=== PATIENT | female | born 1955 | race Caucasian/White ===

== ENCOUNTER → 2016-04-23 | Outpatient (CLI) | payer BC, OTHER ==
[~2016-04-23] MED LIST: ALBUTEROL SULFATE 0.083% NEB 2.5 MG/3 ML AMPUL NEB ONE
--- NOTE | 2016-04-25 10:18 | PULMONARY FUNCTION TEST ---
DATE OF SERVICE: 04/23/2016 THE VITAL CAPACITY IS NORMAL. THE EXPIRATORY FLOW RATES ARE NORMAL. THE FEV1/VC IS 61%, PREDICTED: 83% LUNG VOLUMES BY NITROGEN WASH OUT METHOD SHOW: TLC IS 112% OF PREDICTED FRC IS 115% OF PREDICTED RV IS 81% OF PREDICTED THE DLCO IS 13.1, 73% OF PREDICTED. THE RV/TLC RATIO IS 27% PREDICTED 38% AFTER BRONCHODILATOR, EXPIRATORY FLOW RATES SHOW SIGNIFICANT IMPROVEMENT. IMPRESSION: ALTHOUGH THE VC AND FEV1 ARE BOTH NORMAL, THE DECREASE IN FEV1/VC SUGGESTS A SLIGHT OBSTRUCTIVE DEFECT. EXPIRATORY FLOW RATES IMPROVE SIGNIFICANTLY AFTER BRONCHODILATOR. CC: DEREK NYE MD > URBANOD
== END ==
LOC: RT 08:20 → MERGE 08:30
PROVIDERS: ATTEND Internal Medicine Pulmonary Disease
DX: R05 Cough (principal)
CPT/HCPCS: 94060; 94727; 94729

== ENCOUNTER 2019-01-13 11:20 | Day surgery (SDC) | payer MEDICARE, BC, OTHER ==
[2019-01-12 10:06] LABS: HEMATOCRIT 40.4 % (36.0-47.0); HEMOGLOBIN 13.6 g/dL (12.0-15.5); MEAN CORPUSCULAR HEMOGLOBIN 30.8 pg (27.0-33.4); MEAN CORPUSCULAR HGB CONC 33.6 g/dL (32.0-36.0); MEAN CORPUSCULAR VOLUME 92 fl (80-97); PLATELET COUNT 214 10^3/uL (150-450); RED BLOOD COUNT 4.41 10^6/uL (3.72-5.28); RED CELL DISTRIBUTION WIDTH 12.8 % (11.5-14.0); WHITE BLOOD COUNT 6.2 10^3/uL (4.0-10.5)
[2019-01-12 10:14] LABS: AMORPHOUS SEDIMENT,URINE TRACE /HPF; APPEARANCE,URINE CLOUDY; BILIRUBIN,URINE NEGATIVE (NEGATIVE); COLOR,URINE YELLOW; GLUCOSE, URINE NEGATIVE (NEGATIVE); KETONES,URINE NEGATIVE (NEGATIVE); LEUKOCYTE ESTERASE,URINE NEGATIVE (NEGATIVE); NITRITE,URINE NEGATIVE (NEGATIVE); PROTEIN,URINE NEGATIVE (NEGATIVE); URINE SPECIFIC GRAVITY 1.016; UROBILINOGEN,URINE NEGATIVE mg/dL (<2.0)
--- NOTE | 2019-01-12 13:35 | EKG REPORT ---
SEVERITY:- NORMAL ECG - SINUS RHYTHM : Confirmed by: Bryn Santos MD 12-Jan-2019 13:35:15
[~2019-01-13 11:20] MED LIST changes: -ALBUTEROL SULFATE 0.083% NEB 2.5 MG/3 ML AMPUL NEB ONE; +LACTATED RINGERS 1000 ML IV PRN; +LIDOCAINE 0.5% INJ-PF (5 MG/ML) 50 ML SDV SUBCUT PRN
[2019-01-13] MEDS ORDERED: PROPOFOL INJ 200 MG/20 ML VIAL IV ONE (13:08)
[2019-01-13] MEDS ORDERED: FENTANYL CITRATE INJ/PF 100 MCG/2 ML AMPUL ONE (13:08)
[2019-01-13] MEDS ORDERED: MIDAZOLAM 2 MG/2 ML INJ ONE (13:08)
[2019-01-13] MEDS ORDERED: KETAMINE HCL INJ 500 MG/10 ML VIAL ONE (13:08)
[2019-01-13] MEDS ORDERED: DIPHENHYDRAMINE HCL 50 MG/ML VIAL IV PRN (14:16)
[2019-01-13] MEDS ORDERED: OXYCODONE-ACETAMINOPHEN 5-325 MG TABLET ONE (14:55)
[2019-01-13] MEDS ORDERED: MORPHINE SULFATE 10 MG/ML INJ IM PRN (14:58)
--- NOTE | 2019-01-13 14:59 | Operative Report ---
Operative Report DATE OF SURGERY: 01/13/19 PREOPERATIVE DIAGNOSIS: family history of malignant neoplasm, cervical stenosis, POSTOPERATIVE DIAGNOSIS: Same OPERATION: Cervical dilation endometrial curettage SURGEON: BETSY MENDOZA ANESTHESIA: LMAC TISSUE REMOVED OR ALTERED: Pap smear endometrial sampling COMPLICATIONS: Was not able to complete hysteroscope due to severity of cervical stenosis. Able to dilate adequately. Concern for uterine perforation. ESTIMATED BLOOD LOSS: 10 cc INTRAOPERATIVE FINDINGS: Very small vaginal introitus, cervix very small very stenotic. PROCEDURE: Patient was taken to the operating room prepared and draped in normal sterile fashion in a dorsal lithotomy position in [facility]. Sterile conditions and in and out cath was performed with approximately 10 cc of clear urine. Pediatric speculum was chosen to the patient's anatomy into the patient's vagina. This was located Pap smear was obtained using a Cytobrush and a spatula. Wax was grasped on the anterior lip with a single-tooth tenaculum. With a lacrimal dilators I began dilatation of the cervix much difficulty. I was only able to dilate to 4 mm. At this point I used an endometrial Pipelle attempt collection of endometrial sampling Pipelle went through easily no resistance there was concern for perforation. The sampling that I did collect from this Pipelle was washed through the water and placed in a formalin container. The Kevorkian curette was gently introduced with gentle scraping was performed. I then removed instruments and held pressure with a sponge stick. We watch the patient for approximately 10 minutes in the OR did not see any signs of hypotension or any other indication that which show there was blood vessel damage. Taken to the PACU alert condition to carefully there with again no signs of permanent injury from perforation feel that the patient most likely had either a minor perforation that walled itself off or there is no perforation after all.
[2019-01-13] MEDS ORDERED: IBUPROFEN 800 MG TABLET PO PRN (15:02)
[2019-01-13] MEDS ORDERED: OXYCODONE-ACETAMINOPHEN 5-325 MG TABLET PO PRN ×2 (15:02→15:03)
[2019-01-13 16:26] VITALS: BP 129/69
== END 2019-01-13 16:10 | disposition home or self-care (01) ==
LOC: OROUT 11:20
PROVIDERS: ATTEND Obstetrics & Gynecology
DX: N88.2 Stricture and stenosis of cervix uteri (principal); Z80.41 Family history of malignant neoplasm of ovary; Z79.899 Other long term (current) drug therapy; Z88.0 Allergy status to penicillin; Z88.2 Allergy status to sulfonamides
CPT/HCPCS: 93005; 36415; 82962; 85027; 81001; 88305 ×2; 88142; 93010; 58120; J2250; J3490; A9270; J2704; 940; J3010

== ENCOUNTER 2020-03-09 20:55 | Inpatient (IN) | payer MEDICARE, BC, OTHER ==
[2020-03-09] MEDS ORDERED: ADENOSINE INJ/PF 6 MG/2 ML SDV IV ONE ×3 (21:49→22:21)
[2020-03-09] MEDS ORDERED: ONDANSETRON HCL INJ/PF 4 MG/2 ML SDV ONE (21:58)
[2020-03-09] MEDS ORDERED: METOPROLOL TARTRATE PF/INJ 5 MG/5 ML SDV IV ONE ×2 (21:59→22:21)
[2020-03-09] MEDS ORDERED: DILTIAZEM HCL/D5W 125 MG/125 ML RTUINJ IV ONE (22:11)
[2020-03-09] MEDS ORDERED: ONDANSETRON HCL INJ/PF 4 MG/2 ML SDV IV ONE (22:21)
[2020-03-09] MEDS ORDERED: DILTIAZEM HCL/D5W 125 MG/125 ML RTUINJ IV PRN (22:22)
[2020-03-09] MEDS ORDERED: NORMAL SALINE 1000 ML 1,000 ML IV ONE (22:22)
--- NOTE | 2020-03-09 22:44 | ER Document Report ---
ED General - General Chief Complaint: Palpitations Stated Complaint: CHEST DISCOMFORT TRAVEL OUTSIDE OF THE [place] IN LAST 30 DAYS: No - HPI Context: Chief Complaint: [Rapid heart rate] [This is a 64-year-old female who presents to the emergency department complaining of rapid heart rate that has been present for approximately 5 hours. Patient states that she does not have a history of hypertension and does not have any history of thyroid trouble, however, her doctor has told her that her TSH level has been elevated the past couple of times she has had it checked. Patient states she has had episodes of rapid heart rate in the past but they have been self-limited and have resolved on their own in the past. Patient stat es that she only drinks 1 cup of coffee a day and states that the coffee is decaffeinated. Patient states that she has had some chocolate earlier today. Patient denies history of heavy drinking or high blood pressure. Patient denies shortness of breath or chest pain. Patient denies fever, chills, history of COVID-19 infection, known exposure to Covid positive persons or persons under investigation for COVID-19. Patient denies loss of sense of taste or loss of sense of smell. ] History obtained from [patient] Symptoms began:[1800 hrs.] Onset: [Sudden] Timing: [Sudden] Quality: ["Fluttering"] Intensity: [0 out of 5] Location: [Chest] Radiation: [Denies] [The pain does not migrate to a new location.] Aggravating factors: [none] Relieving factors: [none] [Denies] SOB [Denies] nausea [Denies] vomiting [Denies] sweats [Denies] fever [Denies] cough [Denies] calf or leg swelling or pain - Related Data Allergies/Adverse Reactions: Penicillins Adverse Reaction (Verified 01/13/19 12:22) Sulfa (Sulfonamide Antibiotics) Adverse Reaction (Verified 01/13/19 12:22) Past Medical History - General Information source: Patient - Social History Smoking Status: Never Smoker Family History: Reviewed & Not Pertinent - Past Medical History Cardiac Medical History: Reports: Hx Hypertension Denies: Hx Coronary Artery Disease, Hx Heart Attack Pulmonary Medical History: Reports: Hx Asthma - MOD; NO RESCUE MEDS Denies: Hx Bronchitis, Hx COPD, Hx Pneumonia Neurological Medical History: Denies: Hx Cerebrovascular Accident, Hx Seizures Musculoskeletal Medical History: Denies Hx Arthritis - Immunizations Hx Diphtheria, Pertussis, Tetanus Vaccination: Yes Review of Systems - Review of Systems Notes: Review of systems as below unless otherwise stated in HPI. CONSTITUTIONAL [No] fever, [No] chills. EYES [No] eye pain. ENT [No] URI symptoms, [No] sore throat, [No] ear pain. CARDIOVASCULAR [No] chest pain, positive palpitations, [No] edema. RESPIRATORY [No] Cough, [No] SOB, [No] wheezing. GASTROINTESTINAL [No] abdominal pain, [No] nausea, [No] Diarrhea, [No] Vomiting, [No] c onstipation, [No] melena, [No] rectal bleeding. GENITOURINARY [No] dysuria, [No] urinary frequency, [No] hematuria, [No] urinary urgency, [No] vaginal discharge, [No] vaginal bleeding. MUSCULOSKELETAL [No] Back pain. SKIN [No] Rash. NEUROLOGIC [No] Headache, [No] recent seizures, [No] paralysis,[No] parathesias. ENDOCRINE [No] polyuria. HEMO/LYMPATIC [No] easy brusing PSYCHIATRIC [No] depression. Physical Exam - Vital signs Vitals: Temp Pulse Resp BP Pulse Ox 98.1 F 103 H 16 106/51 L 99 03/09/20 21:21 03/09/20 21:21 03/09/20 21:21 03/09/20 21:21 03/09/20 21:21 - Notes Notes: CONSTITUTIONAL [Vital signs reviewed, Patient appears comfortable, Alert and oriented X 3, Normal stature.] HEAD [Atraumatic, Normocephalic.] EYES [Eyes are normal to inspection, No discharge from eyes, Extraocular muscles intact, Sclera are normal, Conjunctiva are normal.] ENT [External ears normal to inspection, Nose examination normal, Mouth normal to inspection.] NECK [Normal ROM, No jugular venous distention, No meningeal signs, ] RESPIRATORY CHEST [Chest is nontender, Breath sounds normal, No respiratory distress.] CARDIOVASCULAR Tachycardia no murmurs, Normal S1 S2, No rub, No gallop.] ABDOMEN [Abdomen is nontender, No pulsatile masses, No other masses, Bowel sounds normal, No distension, No peritoneal signs, No hernias.] BACK [There is no CVA Tenderness, There is no tenderness to palpation, Normal inspection.] UPPER EXTREMITY [Inspection normal, No cyanosis, No clubbing, No edema, LOWER EXTREMITY [Inspection normal, No cyanosis, No clubbing, No edema, No calf tenderness, NEURO [No focal motor deficits, No focal sensory deficits, Speech normal.] SKIN [Skin is warm, Skin is dry, Skin is normal color.] PSYCHIATRIC [Normal affect. ] Course - Re-evaluation Re-evalutation: 03/09/20 22:50 Differential diagnosis: SVT, atrial fibrillation with RVR, atrial flutter, dehy dration, COVID-19 infection, PE, thyroid disorder 03/09/20 22:50 Medical decision making: Upon initial presentation, patient was noted to have a heart rate that would go up into the 160s to 180s range. Initially adenosine was chosen to chemically cardiovert the patient. Patient was given 6 mg of adenosine with a brief decrease in heart rate that did not last. Patient was given 12 mg of adenosine which also had a transient decrease in heart rate. Metoprolol was then ordered, 5 mg IV bolus, with decreased in the heart rate down to the 130s at times and even down to the low 100s at other times. IV fluid bolus was ordered because the patient's systolic pressure was 88 and the patient's blood pressure improved to 115 systolic. A bolus of normal saline was ordered and patient was started on a diltiazem drip at 5 mg an hour. 03/10/20 00:57 Medical decision making: Patient's presentation is most consistent with new onset A. fib with RVR. Patient is currently controlled in terms of her rate with a diltiazem drip at 7.5 mg/h. Since this is new onset A. fib, plan will be to admit the patient states she is being controlled with diltiazem drip and give the patient dose of Lovenox. 03/10/20 00:59 Results of ED MSE discussed with patient. Plan to admit patient had already been discussed with her earlier during her visit. Patient is amenable to this. All questions were answered prior to calling for admission. - Vital Signs Vital signs: Temp Pulse Resp BP Pulse Ox 98.1 F 103 H 13 121/74 99 03/09/20 21:21 03/09/20 21:21 03/10/20 00:16 03/10/20 00:16 03/10/20 00:16 - Laboratory Results Result Diagrams: 03/09/20 21:33 03/09/20 21:33 Laboratory Results Interpreted: 03/09/20 03/09/20 21:33 21:33 Hct 34.5 L Chloride 109 H BUN 29 H Est GFR (MDRD) Non-Af 57 L Critical Laboratory Results Reviewed: No Critical Results Attending or Supervising Physician who Reviewed Labs: JOHNNA VALDES IV - Radiology Results Critical Radiology Results Reviewed: No Critical Results Attending or Supervising Physician who Reviewed Radiology: JOHNNA VALDES IV - EKG Interpretation by Me Additional EKG results interpreted by me: 03/10/20 01:15 EKG obtained on 03/09/2020 at 2113 hrs. was interpreted by this MD. Findings: tachycardia, rate is irregular running between 93 and 188, no P waves are clearly visualized, normal axis, QRS complexes appear narrow, QTC is 459, there are no obvious patterns of ST segment elevation, depression or reciprocal changes seen to suggest acute myocardial ischemia or infarction. When compared to prior EKG from 01/12/2019, patient had a sinus bradycardia with a rate of 54 back in December 2018; today her rate is markedly increased and her rhythm is regular. Impression: Tachycardia with regular rate and nonspecific ST segments. 03/10/20 01:45 Repeat EKG obtained on 03/10/2020 at 014 0 hours was interpreted by this MD. Findings: Atrial fibrillation, rate 93, normal axis, QRS appears narrow, QTC is 413, there are no obvious patterns of ST segment elevation, depression or reciprocal changes seen to suggest acute myocardial ischemia or infarction. Impression: Rate controlled A. fib - Consults Dr. Blackwood Time consulted: 00:56 Reason for consultation: 03/10/20 01:26 New onset A. fib with RVR Consulted provider: will come to ER Procedures - Additional Procedures Cardioversion/Defib Time performed: 21:49 Additional Procedures: Cardioversion/defib Notes: 03/09/20 22:54 Chemical cardioversion was performed as described in the "course" section of this note. Patient initially had a heart rate as high as the 180s. Patient was given 2 doses of adenosine IV with brief decrease in rate that was transient. Patient was then given 5 mg of metoprolol IV which brought her rate down to the low 100s. A IV bolus of fluid was ordered for the patient because she had a systolic pressure of 88 and the patient responded nicely with a increase in her systolic pressure to 115. Patient was started on a diltiazem drip for rate control at 5 mg an hour. Critical Care Note - Critical Care Note Total time excluding time spent on procedures (mins): 120 - Management of new onset atrial fibrillation with RVR Discharge - Discharge Clinical Impression: New onset atrial fibrillation, Atrial fibrillation with RVR Condition: Stable Disposition: ADMITTED INPATIENT Admitting Provider: Deenarimichele Unit Admitted: [facility]
--- NOTE | 2020-03-09 23:20 | RADIOLOGY REPORT (SQ) ---
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 FINDINGS: Single view is obtained. Cardiac and mediastinal contours are normal. Lungs are clear. No pleural effusion or pneumothorax. IMPRESSION: No acute disease.
[2020-03-09 23:27] LABS: ALBUMIN 3.7 g/dL (3.5-5.0); ALKALINE PHOSPHATASE 52 U/L (38-126); ASPARTATE AMINO TRANSFERASE 27 U/L (14-36); BILIRUBIN,DIRECT 0.2 mg/dL (0.0-0.4); BILIRUBIN,TOTAL 0.3 mg/dL (0.2-1.3); BLOOD UREA NITROGEN 29 mg/dL (7-20); CALCIUM 9.6 mg/dL (8.4-10.2); GLUCOSE 92 mg/dL (75-110); POTASSIUM 4.2 mmol/L (3.6-5.0); TOTAL PROTEIN 6.3 g/dL (6.3-8.2)
[2020-03-09 23:30] LABS: PARTIAL THROMBOPLASTIN TIME 34.7 SEC (23.5-35.8); PROTHROMBIN TIME 13.4 SEC (11.4-15.4)
[2020-03-09 23:31] LABS: ABSOLUTE EOSINOPHILS # (AUTO) 0.2 10^3/uL (0.0-0.6); ABSOLUTE MONOCYTES (AUTO) 0.6 10^3/uL (0.1-1.4); ABSOLUTE NEUT (AUTO) 3.7 10^3/uL (1.7-8.2); BASOPHILS % (AUTO) 0.3 % (0-2); EOSINOPHILS % (AUTO) 3.6 % (0-6); HEMATOCRIT 34.5 % (36.0-47.0); HEMOGLOBIN 12.2 g/dL (12.0-15.5); LYMPHOCYTES % (AUTO) 30.3 % (13-45); MEAN CORPUSCULAR HEMOGLOBIN 31.6 pg (27.0-33.4); MEAN CORPUSCULAR HGB CONC 35.2 g/dL (32.0-36.0); MEAN CORPUSCULAR VOLUME 90 fl (80-97); MONOCYTES % (AUTO) 8.7 % (3-13); PLATELET COUNT 217 10^3/uL (150-450); RED BLOOD COUNT 3.85 10^6/uL (3.72-5.28); RED CELL DISTRIBUTION WIDTH 12.8 % (11.5-14.0); SEGMENTED NEUTROPHILS % (AUTO) 57.1 % (42-78); TOTAL CELLS COUNTED % (AUTO) 100 %; WHITE BLOOD COUNT 6.6 10^3/uL (4.0-10.5)
[2020-03-09 23:33] LABS: ANION GAP 5 (5-19); CARBON DIOXIDE 27 mmol/L (22-30); CHLORIDE 109 mmol/L (98-107)
[2020-03-09 23:56] LABS: FREE T3 3.06 pg/mL (2.77-5.27); FREE T4 (FREE THYROXINE) 0.8 ng/dL (0.78-2.19)
[2020-03-10 00:09] LABS: THYROID STIMULATING HORMONE 4.4 uIU/mL (0.47-4.68)
[2020-03-10] MEDS ORDERED: ENOXAPARIN SODIUM INJ 100 MG/1 ML DISP.SYRIN SUBCUT STA (00:48)
[2020-03-10] MEDS ORDERED: ADENOSINE INJ/PF 6 MG/2 ML SDV IV ONE (01:02)
[2020-03-10] MEDS ORDERED: ACETAMINOPHEN 325 MG TABLET PO PRN (01:42)
[2020-03-10] MEDS ORDERED: ONDANSETRON HCL INJ/PF 4 MG/2 ML SDV IV PRN (01:42)
[2020-03-10] MEDS ORDERED: DILTIAZEM HCL/D5W 125 MG/125 ML RTUINJ IV PRN (02:08)
--- NOTE | 2020-03-10 03:23 | PDOC H&P ---
History of Present Illness Admission Date/PCP: 03/10/20 01:37 ONEL THOMAS MD Patient complains of: "I feel like my heart is fluttering" History of Present Illness: AUDIE RYAN is a 64 year old female with a history of asthma, anxiety and PTSD presents to the ED reporting that she has been having fluttering of her heart which started about an hour before presentation. She states that in the past she used to have these paroxysms of fluttering which used to subside with change of position but this time around, she states that she waited around 40 minutes but it did not improve so she called EMS and came to the ER. Associated with this she also states that she felt nauseated and also had dizziness. On arrival patient was tachycardic with heart rate in the 140s and EKG showed A. fib with RVR. After arrival to the ED patient was given adenosine twice but failed to improve and subsequently she was given metoprolol and placed on diltiazem drip. Currently she reports some retrosternal tightness but denies any dizziness, shortness of breath, nausea, vomiting, fever, chills, or any change in her bowel or urinary habits. Past Medical History Cardiac Medical History: Reports: Hypertension Denies: Coronary Artery Disease, Myocardial Infarction Pulmonary Medical History: Reports: Asthma - MOD; NO RESCUE MEDS Denies: Bronchitis, Chronic Obstructive Pulmonary Disease (COPD), Pneumonia Neurological Medical History: Denies: Seizures Musculoskeltal Medical History: Denies: Arthritis Hematology: Reports: Anemia Social History Information Source: Patient Lives with: Family Smoking Status: Never Smoker Frequency of Alcohol Use: None Hx Recreational Drug Use: No Drugs: None - Advance Directive Resuscitation Status: Full Code Family History Family History: Reviewed & Not Pertinent Parental Family History Reviewed: Yes Children Family History Reviewed: Yes Sibling(s) Family History Reviewed.: Yes Medication/Allergy Home Medications: Buspirone HCl [Buspar 10 mg Tablet] 10 mg PO TID 01/12/19 Doxylamine Succinate [Unisom] 25 mg PO HSP PRN 01/12/19 Escitalopram Oxalate [Lexapro] 20 mg PO HSP PRN 01/12/19 Fexofenadine HCl [Funmliayo] 30 mg PO HSP PRN 01/12/19 Fluticasone Propionate [Flonase Nasal [place] 50 Mcg/[place] 16 gm] 120 spray NAREB 01/12/19 Fluticasone/Vilanterol [Breo Ellipta 100-25 Mcg INH] 1 each IH DAILY 01/12/19 Guanfacine HCl 1 mg PO DAILY 01/12/19 Krill/[place]-3/Dha/Epa/Lipids [Krill Oil 300 mg Softgel] 1 each PO DAILY 01/12/19 L.acidoph,Paracasei, B.lactis [Probiotic] 1 each PO HSP PRN 01/12/19 Montelukast Sodium [Singulair 10 mg Tablet] 10 mg PO QHS 01/12/19 Pimecrolimus [Elidel] 100 gm TP PRN 01/12/19 Polyethylene Glycol 3350 [Miralax] 119 gm PO DAILY 01/12/19 Risedronate Sodium 150 mg PO Q30D 01/12/19 Tiotropium [place] [Spiriva [place]er 5 Cap/Kit (18 Mcg/Cap)] 1 cap IH HSP PRN 01/12/19 Ubidecarenone [Co Q-10] 400 mg PO DAILY 01/12/19 Allergies/Adverse Reactions: Penicillins Adverse Reaction (Verified 01/13/19 12:22) Sulfa (Sulfonamide Antibiotics) Adverse Reaction (Verified 01/13/19 12:22) Review of Systems Constitutional: ABSENT: chills, fever(s), headache(s), weight gain, weight loss Eyes: ABSENT: visual disturbances Ears: ABSENT: hearing changes Cardiovascular: PRESENT: as per HPI Respiratory: ABSENT: cough, hemoptysis Gastrointestinal: ABSENT: abdominal pain, constipation, diarrhea, hematemesis, hematochezia, nausea, vomiting Genitourinary: ABSENT: dysuria, hematuria Musculoskeletal: ABSENT: joint swelling Integumentary: ABSENT: rash, wounds Neurological: ABSENT: abnormal gait, abnormal speech, confusion, dizziness, focal weakness, syncope Psychiatric: ABSENT: anxiety, depression, homidical ideation, suicidal ideation Endocrine: ABSENT: cold intolerance, heat intolerance, polydipsia, polyuria Hematologic/Lymphatic: ABSENT: easy bleeding, easy bruising Physical Exam Vital Signs: Temp Pulse Resp BP Pulse Ox 98.1 F 103 H 13 121/74 99 03/09/20 21:21 03/09/20 21:21 03/10/20 00:16 03/10/20 00:16 03/10/20 00:16 Intake & Output 03/08/20 03/09/20 03/10/20 06:59 06:59 06:59 Intake Total 1002 Balance 1002 Weight 85.8 kg Additional comments: GENERAL APPEARANCE: Alert and oriented x3, in no acute distress HEENT: Normocephalic and atraumatic. No scleral icterus. Moist oral mucosa NECK: Supple. No lymphadenopathy or tenderness. No carotid bruit. No JVD CHEST: Symmetric. Nontender to palpation. LUNGS: Clear with good air entry bilaterally. No wheezing or crackles HEART: Regular rate and rhythm with normal S1 and S2. No murmurs, gallops, or rubs. ABDOMEN: soft, active bowel sounds, no direct or rebound tenderness. No organomegaly detected. EXTREMITIES: No cyanosis, clubbing, or edema. MUSCULOSKELETAL: No deformity, atrophy or swelling noted PSYCHIATRIC: Recent and remote memory is intact. Appropriate mood and affect. SKIN: Warm, dry, and well perfused. No lesions or rashes are noted. NEUROLOGIC: No focal sensory or motor deficits are noted. Results Laboratory Results: 03/09/20 21:33 03/09/20 21:33 03/09/20 03/09/20 03/09/20 21:33 21:33 21:33 WBC 6.6 RBC 3.85 Hgb 12.2 Hct 34.5 L MCV 90 MCH 31.6 MCHC 35.2 RDW 12.8 Plt Count 217 Seg Neutrophils % 57.1 Sodium 141.0 Potassium 4.2 Chloride 109 H Carbon Dioxide 27 Anion Gap 5 BUN 29 H Creatinine 0.97 Est GFR ( Amer) > 60 Glucose 92 Calcium 9.6 Total Bilirubin 0.3 AST 27 Alkaline Phosphatase 52 Total Protein 6.3 Albumin 3.7 TSH 4.40 Free T4 0.80 Free T3 pg/mL 3.06 03/09/20 21:33 Troponin I < 0.012 Impressions: Chest X-Ray 03/09/20 22:41 IMPRESSION: No acute disease. Assessment and Plan - Diagnosis (1) Atrial fibrillation with RVR Is this a current diagnosis for this admission?: Yes Plan: New onset A. fib with RVR Patient presents with heart fluttering EKG shows A. fib with RVR with heart rate of 148 [id number] score: 2 indicating that she would need anticoagulation Fail to improve with pleural IV push Patient was started on diltiazem drip at the ED and currently rate is in the 80s Cardiac enzymes were negative TSH, free T4 and T3 were within the normal limit Continue diltiazem drip Continue trending cardiac enzymes On telemetry monitoring Will start him on diltiazem 30 mg p.o. q. 6 hourly and titrate down the IV drip Will Obtain echocardiogram and if no valvular heart disease, consider starting her on DOAC's Cardiology consult placed (2) Asthma Is this a current diagnosis for this admission?: Yes Plan: Currently stable and not in acute exacerbation Continue Breo, Spiriva and singular Albuterol inhaler as needed for shortness of breath (3) Anxiety Is this a current diagnosis for this admission?: Yes Plan: Continue buspirone (4) PTSD (post-traumatic stress disorder) Is this a current diagnosis for this admission?: Yes Plan: Continue buspirone and sertraline (5) Obesity (BMI 30-39.9) Is this a current diagnosis for this admission?: Yes - Time Time Spent with patient: 35 or more minutes Total Critical Time (Minutes): 45 Medications reviewed and adjusted accordingly: Yes Anticipated Discharge Disposition: Home, Self Care Anticipated Discharge Timeframe: within 72 hours - Inpatient Certification Based on my medical assessment, after consideration of the patient's comorbidities, presenting symptoms, or acuity I expect that the services needed warrant INPATIENT care.: Yes I certify that my determination is in accordance with my understanding of Medicare's requirements for reasonable and necessary INPATIENT services [42 CFR 412.3e].: Yes Medical Necessity: Need Close Monitoring Due to Risk of Patient Decompensation, Need For Continuous Telemetry Monitoring, Risk of Complication if Not Cared For in Hospital Post Hospital Care: D/C or Transfer Summary
[2020-03-10] MEDS: BUSPIRONE HCL 10 MG TABLET PO SCH ×3 (05:49→21:05)
[2020-03-10] MEDS: DILTIAZEM HCL 30 MG TABLET PO SCH ×2 (05:49→11:50)
[2020-03-10 05:57] LABS: ANION GAP 8 (5-19); BLOOD UREA NITROGEN 22 mg/dL (7-20); CALCIUM 8.9 mg/dL (8.4-10.2); CARBON DIOXIDE 21 mmol/L (22-30); CHLORIDE 113 mmol/L (98-107); GLUCOSE 89 mg/dL (75-110); POTASSIUM 3.9 mmol/L (3.6-5.0)
[2020-03-10] MEDS ORDERED: ASPIRIN 81 MG TABLET, CHEWABLE PO SCH (10:00)
[2020-03-10] MEDS: FAMOTIDINE 20 MG TABLET PO SCH ×2 (10:04→21:05)
--- NOTE | 2020-03-10 11:36 | EKG REPORT ---
SEVERITY:- ABNORMAL ECG - ATRIAL FIBRILLATION, V-RATE 74-109 : Confirmed by: Sierra Rodas MD 10-Mar-2020 11:35:41
--- NOTE | 2020-03-10 11:37 | EKG REPORT ---
SEVERITY:- ABNORMAL ECG - SINUS TACHYCARDIA WITH IRREGULAR RATE VERSUS SVT : Confirmed by: Sierra Rodas MD 10-Mar-2020 11:36:49
--- NOTE | 2020-03-10 13:03 | PDOC CONSULTATION ---
Consultation Consult Date: 03/10/20 Attending physician:: MOISÉS LAN Provider Consulted: JUAQUIN CHEN Consult reason:: Atrial fibrillation History of Present Illness Admission Date/PCP: 03/10/20 01:37 ONEL THOMAS MD Patient complains of: Palpitations History of Present Illness: AUDIE RYAN is a 64 year old female with a history of asthma, anxiety and PTSD presents to the ED reporting that she has been having fluttering of her heart which started about an hour before presentation. She states that in the past she used to have these paroxysms of fluttering which used to subside with change of position but this time around, she states that she waited around 40 minutes but it did not improve so she called EMS and came to the ER. Associated with this she also states that she felt nauseated and also had dizziness. On arrival patient was tachycardic with heart rate in the 140s and EKG showed A. fib with RVR. After arrival to the ED patient was given adenosine twice but failed to improve and subsequently she was given metoprolol and placed on diltiazem drip. Currently she reports some retrosternal tightness but denies any dizziness, shortness of breath, nausea, vomiting, fever, chills, or any change in her bowel or urinary habits. This history obtained by the hospitalist was reviewed and confirmed with the patient. Patient describes history of previous palpitations. Several years ago she was evaluated by Dr. Islas from [place] and had extensive cardiac evaluation including stress testing and all tests were noted to be unremarkable. Patient denied any prior history of strokes, myocardial infarction, angina or congestive heart failure. Patient does however give history of CAD in the family and also strokes in the family. Patient describes history of anemia but it is chronic. She denied any history of bleeding diathesis. Past Medical History Cardiac Medical History: Reports: Hypertension Denies: Coronary Artery Disease, Myocardial Infarction Pulmonary Medical History: Reports: Asthma - MOD; NO RESCUE MEDS Denies: Bronchitis, Chronic Obstructive Pulmonary Disease (COPD), Pneumonia Neurological Medical History: Reports: None Denies: Seizures Musculoskeltal Medical History: Denies: Arthritis Psychiatric Medical History: Reports: Depression Hematology: Reports: Anemia Past Surgical History Past Surgical History: Reports: None Social History Information Source: Patient Lives with: Family Smoking Status: Never Smoker Electronic Cigarette use?: No Frequency of Alcohol Use: None Hx Recreational Drug Use: No Drugs: None - Advance Directive Resuscitation Status: Full Code Family History Family History: CAD, CVA, Other - History of brain aneurysm Parental Family History Reviewed: Yes Children Family History Reviewed: Yes Sibling(s) Family History Reviewed.: Yes Medication/Allergy Home Medications: Buspirone HCl [Buspar 10 mg Tablet] 10 mg PO TID 01/12/19 Escitalopram Oxalate [Lexapro] 10 mg PO QHS 01/12/19 Fexofenadine HCl [Funmilayo] 30 mg PO HSP PRN 01/12/19 Fluticasone Propionate [Flonase Nasal [place] 50 Mcg/[place] 16 gm] 2 spray NASL DAILY 01/12/19 Guanfacine HCl 1 mg PO DAILY 01/12/19 Krill/[place]-3/Dha/Epa/Lipids [Krill Oil 300 mg Softgel] 1 each PO DAILY 01/12/19 Montelukast Sodium [Singulair 10 mg Tablet] 10 mg PO QPM 01/12/19 Risedronate Sodium 150 mg PO .QMONTHLY 01/12/19 Cholecalciferol (Vitamin D3) [Vitamin D3 1000 Unit Tablet] 1,000 unit PO DAILY 03/10/20 Diphenhydramine HCl [Benadryl] 25 mg PO HSP PRN 03/10/20 Fluticasone/Vilanterol [Breo 200-25 Mcg Ellipta 14 Dose/Dpi] 1 puff IH DAILY 03/10/20 Magnesium Oxide [Mag-Ox 400 mg Tablet] 400 mg PO DAILY 03/10/20 Simvastatin 20 mg PO QPM 03/10/20 Tiotropium [place] [Spiriva Respimat] 2 puff IH DAILY 03/10/20 Allergies/Adverse Reactions: Penicillins Adverse Reaction (Verified 01/13/19 12:22) Sulfa (Sulfonamide Antibiotics) Adverse Reaction (Verified 01/13/19 12:22) Review of Systems Constitutional: ABSENT: chills, fever(s), headache(s), weight gain, weight loss Eyes: ABSENT: visual disturbances Ears: ABSENT: hearing changes Cardiovascular: PRESENT: as per HPI, palpitations. ABSENT: chest pain, dyspnea on exertion, edema, orthropnea Respiratory: ABSENT: cough, hemoptysis Gastrointestinal: ABSENT: abdominal pain, constipation, diarrhea, hematemesis, hematochezia, nausea, vomiting Genitourinary: ABSENT: dysuria, hematuria Musculoskeletal: ABSENT: joint swelling Integumentary: ABSENT: rash, wounds Neurological: ABSENT: abnormal gait, abnormal speech, confusion, dizziness, focal weakness, syncope Psychiatric: ABSENT: anxiety, depression, homidical ideation, suicidal ideation Endocrine: ABSENT: cold intolerance, heat intolerance, polydipsia, polyuria Hematologic/Lymphatic: PRESENT: other - History of anemia. ABSENT: easy bleeding, easy bruising Physical Exam Vital Signs: Temp Pulse Resp BP Pulse Ox 98.5 F 96 16 96/76 L 99 03/10/20 11:19 03/10/20 11:19 03/10/20 11:19 03/10/20 11:19 03/10/20 11:19 Intake & Output 03/09/20 03/10/20 03/11/20 06:59 06:59 06:59 Intake Total 1060 Balance 1060 Weight 56.2 kg Exam: GENERAL: well-nourished and in no acute distress. Alert and oriented x3 HEAD: Atraumatic, normocephalic. EYES: RADHA, sclera anicteric, conjunctiva are normal. ENT: Moist mucous membranes. No oral ulcerations or bleeding gums noted. No obvious ear, nose or throat abnormalities noted. NECK: supple without lymphadenopathy. Trachea is central. No cervical or axillary lymphadenopathy noted. Carotids are 2+, JVD WNL LUNGS: Breath sounds clear bilaterally. No wheezes rales or rhonchi noted. No significant dullness noted on percussion. CHEST: Palpation of the chest wall shows no significant chest wall tenderness. 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 ABDOMEN: Soft, no significant tenderness appreciated, normoactive bowel sounds. No guarding, no rebound. No rigidity noted . No masses appreciated. EXTREMITIES: Pedal pulses are 1-2+, no calf tenderness noted. No clubbing or cy anosis. negative pedal edema noted NEUROLOGICAL: Focused neurological exam showed no significant neurologic deficit. Normal speech, no focal weakness appreciated. PSYCH: Normal mood, normal affect. Judgment and insight within normal limits. SKIN: No significant ecchymosis, skin is noted to be warm. MUSCULOSKELETAL EXAM: No significant acute joint swelling noted. Results Laboratory Results: 03/09/20 21:33 03/10/20 04:01 03/09/20 03/09/20 03/09/20 21:33 21:33 21:33 WBC 6.6 RBC 3.85 Hgb 12.2 Hct 34.5 L MCV 90 MCH 31.6 MCHC 35.2 RDW 12.8 Plt Count 217 Seg Neutrophils % 57.1 Sodium 141.0 Potassium 4.2 Chloride 109 H Carbon Dioxide 27 Anion Gap 5 BUN 29 H Creatinine 0.97 Est GFR ( Amer) > 60 Glucose 92 Calcium 9.6 Magnesium Total Bilirubin 0.3 AST 27 Alkaline Phosphatase 52 Total Protein 6.3 Albumin 3.7 TSH 4.40 Free T4 0.80 Free T3 pg/mL 3.06 03/10/20 04:01 WBC RBC Hgb Hct MCV MCH MCHC RDW Plt Count Seg Neutrophils % Sodium 142.2 Potassium 3.9 Chloride 113 H Carbon Dioxide 21 L Anion Gap 8 BUN 22 H Creatinine 0.75 Est GFR ( Amer) > 60 Glucose 89 Calcium 8.9 Magnesium 1.8 Total Bilirubin AST Alkaline Phosphatase Total Protein Albumin TSH Free T4 Free T3 pg/mL 03/09/20 03/10/20 03/10/20 21:33 04:01 10:58 Troponin I < 0.012 < 0.012 < 0.012 EKG Comments: Atrial fibrillation with rapid ventricular response. No acute ST-T wave changes are noted. Impressions: Chest X-Ray 03/09/20 22:41 IMPRESSION: No acute disease. Assessment & Plan - Diagnosis (1) Atrial fibrillation with RVR Is this a current diagnosis for this admission?: Yes (2) PTSD (post-traumatic stress disorder) Is this a current diagnosis for this admission?: Yes (3) Hyperlipidemia Qualifiers: Hyperlipidemia type: unspecified Qualified Code(s): E78.5 - Hyperlipidemia, unspecified Is this a current diagnosis for this admission?: Yes - Notes Notes: ATRIAL FIBRILLATION: Possibly new onset but patient has history of intermittent palpitations. Recommend rate control and chronic anticoagulation at this time. Recommend obtaining 2D echo as further treatment plan will depend on LVEF, presence or absence of valvular heart disease. Have placed patient on Cardizem CD 120 mg p.o. twice daily. May use as needed IV Cardizem for rate control. Further plans after review of 2D echo. HYPERLIPIDEMIA: Continue statin therapy. Recommend atorvastatin or r osuvastatin. PTSD/DYSTHYMIA: Continue patient's home medication. Once rate is controlled, patient could be discharged with further follow-up as an outpatient. - Time Time Spent: 30 to 50 Minutes Medications reviewed and adjusted accordingly: Yes
[2020-03-10] MEDS: APIXABAN 5 MG TABLET PO SCH (17:40)
[2020-03-10] MEDS ORDERED: MELATONIN 5 MG TABLET PO PRN (18:39)
[2020-03-10] MEDS: DILTIAZEM HCL 120 MG CAP.SR.24H PO SCH (21:23)
[2020-03-10] MEDS ORDERED: ESCITALOPRAM OXALATE 10 MG TABLET PO SCH (22:00)
[2020-03-11] MEDS: BUSPIRONE HCL 10 MG TABLET PO SCH (07:28)
[2020-03-11] MEDS: DILTIAZEM HCL 120 MG CAP.SR.24H PO SCH (09:42)
[2020-03-11] MEDS: APIXABAN 5 MG TABLET PO SCH (09:42)
[2020-03-11] MEDS: FAMOTIDINE 20 MG TABLET PO SCH (09:42)
[2020-03-11] MEDS ORDERED: POLYETHYLENE GLYCOL 3350 POWDER 17 GM/1 PACKET PO SCH (10:00)
--- NOTE | 2020-03-11 10:42 | XCELERA REPORT ---
[address] [address] Transthoracic Echocardiogram Report Name: AUDIE RYAN Age: 64 yrs Gender: Female : 1955 Patient Status: Inpatient Patient Location: [address] [place] [address] Study Date: 03/10/2020 02:15 PM Height: 62 in Weight: 123 lb BSA: 1.6 m2 Procedure: A complete two-dimensional transthoracic echocardiogram was performed (2D, M-mode, spectral and color flow Doppler). The study was technically adequate with some images being suboptimal in quality. Reason For Study: New onset A fib Ordering Physician: LORETTA GUTIÉRREZ Performed By: Marry Carbone Interpretation Summary Interpretation Summary TRANS THORACIC ECHOCARDIOGRAM FINDINGS: LEFT VENTRICLE: LV Systolic function: LVEF is felt to be within normal limits. Best estimate is approximately LVEF is 60 %. LV Diastolic Function: Grade II-III diastolic dysfunction noted. Wall motion : No definite regional wall motion abnormalities are noted. Left ventricular chamber size : is within normal limit. Left ventricular wall thickness : is increased indicative of Mild LVH. INTERVENTRICULAR SEPTUM: no evidence of VSD noted. No asymmetric hypertrophy noted. RIGHT VENTRICLE: RV systolic function : is felt to be within normal limit. Right Ventricle Size : borderline dilated. LEFT ATRIUM size : mildly dilated. RIGHT ATRIUM size : is within normal limit. INTER ATRIAL SEPTUM : No definite atrial septal defect noted however a small PFO could be missed. AORTIC ROOT : seems to be within normal limits. Ascending aorta is not well visualized. INFERIOR VENA CAVA: was not well visualized. VALVES: MITRAL VALVE : Leaflets are mildly thickened. Mobility seems to be within normal limits. Mitral Regurgitation : Trace mitral regurgitation is noted. Mitral Stenosis: No mitral stenosis noted. Mitral valve prolapse : none noted. AORTIC VALVE: seems to be trileaflet with thickening but adequate excursion. Aortic stenosis : No aortic stenosis noted. Aortic regurgitation : Mild aortic incompetence noted. TRICUSPID VALVE : mobility and structures within normal limit. Tricuspid stenosis : no tricuspid stenosis noted. Tricuspid regurgitation : Trace tricuspid regurgitation noted. Estimated RVSP : RVSP estimated at upper limit of normal. PULMONARY VALVE : was not well visualized but no significant abnormalities suspected. Pulmonary stenosis : no significant pulmonary stenosis noted. Pulmonary regurgitation : no significant pulmonary regurgitation noted. MASSES AND THROMBUS : No definite intracardiac thrombus or masses are noted. PERICARDIUM: No pericardial effusion was noted. IMPRESSION : 1. Normal LVEF. 2. Mild LVH noted. 3. Grade II-III Diastolic Dysfunction noted. 4. Mild aortic regurgitation noted. 5. Left atrium is mildly dilated. MMode/2D Measurements & Calculations RVDd: 3.1 cm LVIDd: 5.0 cm FS: 36.2 % Ao root diam: 2.8 cm IVSd: 0.56 cm LVIDs: 3.2 cm EDV(Teich): 117.3 ml Ao root area: 6.1 cm2 LVPWd: 0.87 cm ESV(Teich): 40.3 ml LA dimension: 3.8 cm EF(Teich): 65.6 % Doppler Measurements & Calculations MV E max andrew: MV P1/2t max andrew: Ao V2 max: AI max andrew: 74.3 cm/sec 89.0 cm/sec 171.0 cm/sec 388.8 cm/sec MV A max andrew: MV P1/2t: 70.4 msec Ao max PG: AI max P.5 mmHg 70.5 cm/sec MVA(P1/2t): 3.1 cm2 11.7 mmHg AI dec slope: MV E/A: 1.1 MV dec slope: 152.2 cm/sec2 AI P1/2t: 747.9 msec 370.5 cm/sec2 MV dec time: 0.17 sec LV V1 max PG: PA V2 max: TR max andrew: AV P1/2t-pr_phl: 3.6 mmHg 62.8 cm/sec 199.5 cm/sec 747.9 msec LV V1 max: PA max P.6 mmHg TR max P.0 cm/sec 15.9 mmHg MV P1/2t-pr_phl: 70.4 msec : LORETTA GUTIÉRREZ Shyamal
--- NOTE | 2020-03-11 12:15 | PDOC DISCHARGE SUMMARY ---
Impression - Admit/DC Date/PCP Admission Date/Primary Care Provider: 03/10/20 01:37 ONEL THOMAS MD Discharge Date: 03/11/20 - Additional Information Resuscitation Status: Full Code Discharge Diet: Cardiac Discharge Activity: Activity As Tolerated Referrals: ONEL THOMAS MD [Primary Care Provider] - Follow up as needed JUAQUIN CHEN MD [ACTIVE STAFF] - 03/19/20 (Call for follow up appointment) Prescriptions: Diltiazem HCl [Cardizem Cd 120 mg Capsule] 120 mg PO Q12 #60 cap.sr.24h Apixaban [Eliquis 5 mg Tablet] 5 mg PO BID #60 tablet Home Medications: Buspirone HCl [Buspar 10 mg Tablet] 10 mg PO TID 01/12/19 Escitalopram Oxalate [Lexapro] 10 mg PO QHS 01/12/19 Fexofenadine HCl [Funmilayo] 30 mg PO HSP PRN 01/12/19 Fluticasone Propionate [Flonase Nasal [place] 50 Mcg/[place] 16 gm] 2 spray NASL DAILY 01/12/19 Guanfacine HCl 1 mg PO DAILY 01/12/19 Krill/[place]-3/Dha/Epa/Lipids [Krill Oil 300 mg Softgel] 1 each PO DAILY 01/12/19 Montelukast Sodium [Singulair 10 mg Tablet] 10 mg PO QPM 01/12/19 Risedronate Sodium 150 mg PO .QMONTHLY 01/12/19 Cholecalciferol (Vitamin D3) [Vitamin D3 1000 Unit Tablet] 1,000 unit PO DAILY 03/10/20 Diphenhydramine HCl [Benadryl] 25 mg PO HSP PRN 03/10/20 Fluticasone/Vilanterol [Breo 200-25 Mcg Ellipta 14 Dose/Dpi] 1 puff IH DAILY 03/10/20 Magnesium Oxide [Mag-Ox 400 mg Tablet] 400 mg PO DAILY 03/10/20 Simvastatin 20 mg PO QPM 03/10/20 Tiotropium [place] [Spiriva Respimat] 2 puff IH DAILY 03/10/20 Apixaban [Eliquis 5 mg Tablet] 5 mg PO BID #60 tablet 03/11/20 Diltiazem HCl [Cardizem Cd 120 mg Capsule] 120 mg PO Q12 #60 cap.sr.24h 03/11/20 History of Present Illiness History of Present Illness: AUDIE RYAN is a 64 year old female admitted with palpitations and was found to be in atrial fibrillation on initial presentation. She also complained of nausea as well as dizziness. Hospital Course Hospital Course: Patient was found to be in atrial fibrillation with a rapid regular response with her heart rate initially in the 140s. She was started on Cardizem drip and she was admitted to the telemetry unit. She also received anticoagulant and ultimately started on Eliquis for which she has received education. Patient did convert to sinus rhythm after about 24 hours. Was placed on oral diltiazem. Was also seen by Dr. 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 Echocardiogram done reveals ejection fraction of 65%. She remained hemodynamically stable and with resolution of her presenting symptoms and hemodynamic stability she is being discharged home for outpatient follow-up. Physical Exam Vital Signs: Temp Pulse Resp BP Pulse Ox 97.8 F 73 18 132/72 H 98 03/11/20 08:32 03/11/20 07:00 03/11/20 03:46 03/11/20 03:46 03/11/20 03:46 Intake & Output 03/10/20 03/11/20 03/12/20 06:59 06:59 06:59 Intake Total 1060 580 Output Total 1650 Balance 1060 -1070 Weight 56.2 kg 56.7 kg General appearance: PRESENT: no acute distress, well-developed, well-nourished Head exam: PRESENT: atraumatic, normocephalic Eye exam: PRESENT: conjunctiva pink, EOMI, PERRLA. ABSENT: scleral icterus Mouth exam: PRESENT: moist, tongue midline Neck exam: ABSENT: carotid bruit, JVD, lymphadenopathy, thyromegaly Respiratory exam: PRESENT: clear to auscultation phylicia. ABSENT: rales, rhonchi, wheezes Cardiovascular exam: PRESENT: RRR, +S1, +S2. ABSENT: diastolic murmur, rubs, systolic murmur Pulses: PRESENT: normal dorsalis pedis pul Vascular exam: PRESENT: normal capillary refill GI/Abdominal exam: PRESENT: normal bowel sounds, soft. ABSENT: distended, guarding, mass, organolmegaly, rebound, tenderness Rectal exam: PRESENT: deferred Extremities exam: PRESENT: full ROM. ABSENT: calf tenderness, clubbing, pedal edema Neurological exam: PRESENT: alert, awake, oriented to person, oriented to place, oriented to time, oriented to situation, CN II-XII grossly intact. ABSENT: motor sensory deficit Psychiatric exam: PRESENT: appropriate affect, normal mood. ABSENT: homicidal ideation, suicidal ideation Skin exam: PRESENT: dry, intact, warm. ABSENT: cyanosis, rash Results Laboratory Results: WBC 6.6 10^3/uL (4.0-10.5) 03/09/20 21: RBC 3.85 10^6/uL (3.72-5.28) 03/09/20 21: Hgb 12.2 g/dL (12.0-15.5) 03/09/20: Hct 34.5 % (36.0-47.0) L 03/09/20 21: MCV 90 fl (80-97) 03/09/20 21: MCH 31.6 pg (27.0-33.4) 03/09/20 21: MCHC 35.2 g/dL (32.0-36.0) 03/09/20 21: RDW 12.8 % (11.5-14.0) 03/09/20: Plt Count 217 10^3/uL (150-450) 03/09/20 21: Lymph % (Auto) 30.3 % (13-45) 03/09/20 21: [place] % (Auto) 8.7 % (3-13) 03/09/20 21: Eos % (Auto) 3.6 % (0-6) 03/09/20 21: Baso % (Auto) 0.3 % (0-2) 03/09/20 21: Absolute Neuts (auto) 3.7 10^3/uL (1.7-8.2) 03/09/20: Absolute Lymphs (auto) 2.0 10^3/uL (0.5-4.7) 03/09/20: Absolute Monos (auto) 0.6 10^3/uL (0.1-1.4) 03/09/20 21: Absolute Eos (auto) 0.2 10^3/uL (0.0-0.6) 03/09/20 21:33 Absolute Basos (auto) 0.0 10^3/uL (0.0-0.2) 03/09/20 21:33 Seg Neutrophils % 57.1 % (42-78) 03/09/20 21:33 PT 13.4 SEC (11.4-15.4) 03/09/20 21:33 INR 1.00 03/09/20 21:33 APTT 34.7 SEC (23.5-35.8) 03/09/20 21:33 Sodium 142.2 mmol/L (137-145) 03/10/20 04:01 Potassium 3.9 mmol/L (3.6-5.0) 03/10/20 04:01 Chloride 113 mmol/L (98-107) H 03/10/20 04:01 Carbon Dioxide 21 mmol/L (22-30) L 03/10/20 04:01 Anion Gap 8 (5-19) 03/10/20 04:01 BUN 22 mg/dL (7-20) H 03/10/20 04:01 Creatinine 0.75 mg/dL (0.52-1.25) 03/10/20 04:01 Est GFR ( Amer) > 60 (>60) 03/10/20 04:01 Est GFR (MDRD) Non-Af > 60 (>60) 03/10/20 04:01 Glucose 89 mg/dL (75-110) 03/10/20 04:01 Calcium 8.9 mg/dL (8.4-10.2) 03/10/20 04:01 Magnesium 1.8 mg/dL (1.6-2.3) 03/10/20 04:01 Total Bilirubin 0.3 mg/dL (0.2-1.3) 03/09/20 21: Direct Bilirubin 0.2 mg/dL (0.0-0.4) 03/09/20 21:33 Neonat Total Bilirubin Not Reportable 03/09/20 21:33 Neonat Direct Bilirubin Not Reportable 03/09/20 21:33 Neonat Indirect Bili Not Reportable 03/09/20 21:33 AST 27 U/L (14-36) 03/09/20 21:33 ALT 16 U/L (<35) 03/09/20: Alkaline Phosphatase 52 U/L (38-126) 03/09/20: Troponin I < 0.012 ng/mL 03/10/20 10:58 Total Protein 6.3 g/dL (6.3-8.2) 03/09/20: Albumin 3.7 g/dL (3.5-5.0) 03/09/20 TSH 4.40 uIU/mL (0.47-4.68) 03/09/20 Free T4 0.80 ng/dL (0.78-2.19) 03/09/20 Free T3 pg/mL 3.06 pg/mL (2.77-5.27) 03/09/20 Ryan Human Metapneumo PCR NOT DETECTED (NOT DETECT) 03/10/20 00: Adenovirus (PCR) NOT DETECTED (NOT DETECT) 03/10/20: B. pertussis DNA (PCR) NOT DETECTED (NOT DETECT) 03/10/20 B.parapertussis DNA PCR NOT DETECTED (NOT DETECT) 03/10/20: C. pneumoniae DNA (PCR) NOT DETECTED (NOT DETECT) 03/10/20: Coronavirus OC43 (PCR) NOT DETECTED (NOT DETECT) 03/10/20: Coronavirus HKU1 (PCR) NOT DETECTED (NOT DETECT) 03/10/20: Coronavirus 229E (PCR) NOT DETECTED (NOT DETECT) 03/10/20: Coronavirus NL63 (PCR) NOT DETECTED (NOT DETECT) 03/10/20: Influenza A (H1) PCR NOT DETECTED (NOT DETECT) 03/10/20: Influ A (H1N1/09) PCR NOT DETECTED (NOT DETECT) 03/10/20: Influenza A (H3) PCR NOT DETECTED (NOT DETECT) 03/10/20: Influenza Type A (PCR) NOT DETECTED (NOT DETECT) 03/10/20: Influenza Type B (PCR) NOT DETECTED (NOT DETECT) 03/10/20: M. pneumoniae (PCR) NOT DETECTED (NOT DETECT) 03/10/20: Parainfluenza 1 (PCR) NOT DETECTED (NOT DETECT) 01/16/21 00:22 Parainfluenza 2 (PCR) NOT DETECTED (NOT DETECT) 03/10/20 00:22 Parainfluenza 3 (PCR) NOT DETECTED (NOT DETECT) 03/10/20 00:22 Parainfluenza 4 (PCR) NOT DETECTED (NOT DETECT) 03/10/20 00:22 RSV (PCR) NOT DETECTED (NOT DETECT) 03/10/20 00:22 Entero/Rhino (PCR) NOT DETECTED (NOT DETECT) 03/10/20 00:22 SARS-CoV-2 (PCR) NOT DETECTED (NOT DETECT) 03/10/20 00:22 03/09/20 03/10/20 03/10/20 21:33 04:01 10:58 Troponin I < 0.012 < 0.012 < 0.012 Impressions: Chest X-Ray 03/09/20 22:41 IMPRESSION: No acute disease. Plan Health Concerns: Follow-up with PCP for further evaluation of her thyroid status as indicated. TSH done in hospital was borderline normal high She is to follow-up with Dr. Chen as outpatient in 1 week for further evaluation and adjustment of her medications as needed Time Spent: Less than 30 Minutes Stroke Is this a Stroke Patient?: No Acute Heart Failure Is this a Heart Failure Patient?: No
--- NOTE | 2020-03-11 12:17 | PDOC PROGRESS REPORT ---
Subjective Date:: 03/11/20 Subjective:: Patient seems to be doing better with gradual improvement. Pt is denying any ch est arm or neck discomfort. Patient denying any PND, orthopnea. Patient denied any sustained palpitations, dizziness, syncope, near syncope. Patient denying any fever chills. Patient denying any other significant discomfort. Patient is patient converted to sinus rhythm at around 3 PM and since then has maintained sinus rhythm. Patient seems to have paroxysmal atrial fibrillation. Review of systems: Rest review of systems negative. Medications: Medications have been reviewed. Reason For Visit: A.FIB WITH RVR Physical Exam Vital Signs: Temp Pulse Resp BP Pulse Ox 97.8 F 73 18 132/72 H 98 03/11/20 08:32 03/11/20 07:00 03/11/20 03:46 03/11/20 03:46 03/11/20 03:46 Intake & Output 03/10/20 03/11/20 03/12/20 06:59 06:59 06:59 Intake Total 1060 580 Output Total 1650 Balance 1060 -1070 Weight 56.2 kg 56.7 kg Exam: GENERAL: well-nourished and in no acute distress. Alert and oriented x3 HEAD: Atraumatic, normocephalic. EYES: RADHA, sclera anicteric, conjunctiva are normal. ENT: Moist mucous membranes. No oral ulcerations or bleeding gums noted. No obvious ear, nose or throat abnormalities noted. NECK: supple without lymphadenopathy. Trachea is central. No cervical or axillary lymphadenopathy noted. Carotids are 2+, JVD WNL LUNGS: Breath sounds clear bilaterally. No wheezes rales or rhonchi noted. No significant dullness noted on percussion. CHEST: Palpation of the chest wall shows no significant chest wall tenderness. 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 ABDOMEN: Soft, no significant tenderness appreciated, normoactive bowel sounds. No guarding, no rebound. No rigidity noted . No masses appreciated. EXTREMITIES: Pedal pulses are 1-2+, no calf tenderness noted. No clubbing or cyanosis. negative pedal edema noted NEUROLOGICAL: Focused neurological exam showed no significant neurologic deficit. Normal speech, no focal weakness appreciated. PSYCH: Normal mood, normal affect. Judgment and insight within normal limits. SKIN: No significant ecchymosis, skin is noted to be warm. MUSCULOSKELETAL EXAM: No significant acute joint swelling noted. Results Laboratory Results: 03/09/20 21:33 03/10/20 04:01 03/09/20 03/10/20 03/10/20 21:33 04:01 10:58 Troponin I < 0.012 < 0.012 < 0.012 Impressions: Chest X-Ray 03/09/20 22:41 IMPRESSION: No acute disease. Assessment & Plan - Diagnosis (1) Atrial fibrillation with RVR Is this a current diagnosis for this admission?: Yes (2) PTSD (post-traumatic stress disorder) Is this a current diagnosis for this admission?: Yes (3) Hyperlipidemia Qualifiers: Qualified Code(s): E78.5 - Hyperlipidemia, unspecified Is this a current diagnosis for this admission?: Yes - Notes Notes: Patient noted to have paroxysmal atrial fibrillation. However because of her age, recommend Eliquis therapy for at least a month if not long-term. Continue Cardizem as outpatient at 120 mg p.o. twice daily. For hyperlipidemia, continue with statin therapy. Patient was encouraged to ambulate. Feel that patient can be discharged with follow-up appointment with me or service attendant cafeteria of her choice. - Time Time with patient: 15-25 minutes
[2020-03-11 13:52] VITALS: BP 115/79
--- NOTE | 2020-03-11 20:34 | EKG REPORT ---
SEVERITY:- NORMAL ECG - SINUS RHYTHM : Confirmed by: Sierra Rodas MD 11-Mar-2020 20:33:42
== END 2020-03-11 15:15 | disposition home or self-care (01) | DRG 310 ==
LOC: ER 20:55 → EH 03-10 01:37 → 3S 03-10 03:26
PROVIDERS: ADMIT Student in an Organized Health Care Education/Training Program; ATTEND Internal Medicine
DX: I48.0 Paroxysmal atrial fibrillation (principal); I10 Essential (primary) hypertension; J45.909 Unspecified asthma, uncomplicated; F41.9 Anxiety disorder, unspecified; E66.9 Obesity, unspecified; F43.10 Post-traumatic stress disorder, unspecified; E78.5 Hyperlipidemia, unspecified; Z20.822 Contact with and (suspected) exposure to COVID-19; Z88.0 Allergy status to penicillin; Z88.2 Allergy status to sulfonamides; Z79.899 Other long term (current) drug therapy; Z82.49 Family history of ischemic heart disease and other diseases of the circulatory system; Z82.3 Family history of stroke
CPT/HCPCS: 36415; 71045; 80048; 80053; 83735; 84439; 84443; 84481; 84484; 85025; 85610; 85730; 93005; 93010; 93306; 96365; 96366; 96372; 96375; 96376; 99285; 0202U; J0153; J1650; J2405; J3490; J7030